=== PATIENT | female | born 1970 | race Caucasian/White ===

== ENCOUNTER 2019-08-19 13:28 | Emergency (ER) | payer MEDICAID ==
[~2019-08-19] VITALS: Ht 172.7 cm; Wt 93.2 kg
[2019-08-19] MEDS ORDERED: HYDR-4383 PO (15:46)
[2019-08-19 15:56] VITALS: BP 130/85
== END 2019-08-19 15:55 | disposition home or self-care (01) ==
LOC: ER 13:29
DX: H60.391 Other infective otitis externa, right ear (principal); H92.02 Otalgia, left ear; Z88.2 Allergy status to sulfonamides
CPT/HCPCS: 99283